=== PATIENT | female | born 1960 | race African-American/Black ===

== ENCOUNTER 2016-09-07 12:52 | Emergency (ER) | payer BC ==
[2016-09-07 12:58] VITALS: BP 138/75; PULSE 71; TEMP 98; BMI 31.0
[2016-09-07] MEDS ORDERED: KETOROLAC TROMETHAMINE 60 MG/2 ML VIAL IM ONE (14:21)
--- NOTE | 2016-09-07 14:21 | PDOC ---
History of Present Illness - General Chief Complaint: Injury Stated Complaint: FALL/ BACK PAIN, RT LEG Time Seen by Provider: 09/07/16 13:26 History Source: Patient Exam Limitations: No Limitations - History of Present Illness Initial Comments: 09/07/16 14:29 \ Chief complaint: Right lower back pain radiating down her right leg to calf, right knee buckling since falling this morning in her bathroom History of present illness: Patient is a 56-year-old female with a history of hypertension, cervical neck pain chronic and right shoulder pain here today after patient slid in her bathroom causing her to do a split with her right leg forward in her left leg backwards causing her back to arch posteriorly. Patient reports that she has had severe right lower back pain radiating down her right leg to her right posterior calf since this occurred this morning. Patient also reports that her right knee is tender laterally and juan that time. Patient reports that in the past she has had right-sided lower back pain with sciatica down her right leg. Patient reports taking ibuprofen in early a.m. Patient does not want anything stronger that his narcotic presently. Patient is also on gabapentin she reports that she takes 3 times a day unsure of dose because of her chronic neck pain and shoulder pain. Patient denies any numbness of her right leg or any saddle anesthesia or any incontinency. Patient reports the pain is sharp in currently is a 10 out of 10 radiating from right lower back down her leg to mid calf. SHe reports that she is ambulating but is putting a lot of pressure on her left side. Occurred: reports: just prior to arrival Severity: reports: severe (rt. lower back pain radiates down rt. leg to calf, ) Pain Location: reports: back (right sided radiates down rt. leg to calf, ), lower extremity (rt. knee pain and buckling of knee) Method of Injury: Yes: fall (causing her to do a split with right leg forward, left backward, causing her lower back to arch backward) Modifying Factors: improves with: None Loss of Consciousness: no loss of consciousness Associated Symptoms (Fall): muscle spasms (rt.. thigh, lower back ) Past History - Past Medical History Allergies/Adverse Reactions: Allergies Allergy/AdvReac Type Severity Reaction Status Date / Time No Known Allergies Allergy Verified 09/07/16 12:58 Home Medications: Ambulatory Orders Amlodipine Besylate [Norvasc -] 5 mg PO DAILY 04/14/13 Freeland-3 Fatty Acids/Dha/Epa [Megared Plant-Freeland 300 mg Cap] 300 mg PO DAILY Ibuprofen 600 mg PO Q6H PRN #18 tablet 09/07/16 HTN: Yes Suicide Attempt (Hx): No - Psycho/Social/Smoking Cessation Hx Suicidal Ideation: No Smoking Status: No Smoking History: Former smoker Have you smoked in the past 12 months: No Number of Cigarettes Smoked Daily: 0 If you are a former smoker, when did you quit?: 32 years ago Information on smoking cessation initiated: No Hx Alcohol Use: No Drug/Substance Use Hx: No Review of Systems - Review of Systems Able to Perform ROS?: Yes Constitutional: No: Symptoms Reported HEENTM: No: Symptoms Reported Respiratory: No: Symptoms reported Cardiac (ROS): No: Symptoms Reported ABD/GI: No: Symptoms Reported : No: Symptoms Reported Musculoskeletal: Yes: Back Pain (right sided radiates down rt. leg to mid calf ) , Joint Pain (rt. knee with buckling ), Muscle Pain (rt. thigh ) Integumentary: No: Symptoms Reported Neurological: No: Symptoms reported *Physical Exam - Vital Signs Last Vital Signs Temp Pulse Resp BP Pulse Ox 98 F 71 18 138/75 97 09/07/16 12:55 09/07/16 12:55 09/07/16 12:55 09/07/16 12:55 09/07/16 12:55 - Physical Exam General Appearance: Yes: Appropriately Dressed Respiratory/Chest: positive: Lungs Clear, Normal Breath Sounds. negative: Chest Tender, Respiratory Distress Cardiovascular: positive: Regular Rhythm, Regular Rate, S1, S2 Musculoskeletal: positive: Normal Inspection, Decreased Range of Motion (at waist ), Muscle Spasm (rt. thigh lateral), Other (rt. paraspinal muscle tenderness). negative: Vertebral Tenderness Extremity: positive: Normal Capillary Refill, Normal Inspection, Normal Range of Motion (tenderness rt. lateral/posterior knee ), Other (negative anterior/ posterior drawer, no crepitus) Integumentary: positive: Normal Color Neurologic: positive: Alert, Normal Response, Respond to painful stimul, Responsive, Other (negative SLR b/l ). negative: Motor Strength 5/5 (motor/ strenght lower rt 4/4), Numbness, Sensory Deficit (right ) Deep Tendon Reflexes: Knee (R): 4+ Procedures - Consent Consent obtained: From Patient - Splinting Splint Location: Right: Knee Pre-Proc Neuro Vasc Exam: normal Pre-Made Type: knee immobilizer Progress: 09/07/16 15:36 lisae Medical Decision Making - Medical Decision Making 09/07/16 14:32 Patient is a 56-year-old female with a history of hypertension, cervical neck pain chronic and right shoulder pain here today after patient slid in her bathroom causing her to do a split with her right leg forward in her left leg backwards causing her back to arch posteriorly. Patient reports that she has had severe right lower back pain radiating down her right leg to her right posterior calf since this occurred this morning. Patient also reports that her right knee is tender laterally and juan that time. Patient reports that in the past she has had right-sided lower back pain with sciatica down her right leg. Patient reports taking ibuprofen in early a.m. Patient does not want anything stronger that his narcotic presently. Patient is also on gabapentin she reports that she takes 3 times a day unsure of dose because of her chronic neck pain and shoulder pain. Patient denies any numbness of her right leg or any saddle anesthesia or any incontinency. Patient reports the pain is sharp in currently is a 10 out of 10 radiating from right lower back down her leg to mid calf. SHe reports that she is ambulating but is putting a lot of pressure on her left side. 09/07/16 14:32 Fall, right lower back pain with radiculopathy down right leg to bid calf Right knee pain laterally with unstable knee buckling with ambulation Plan: Toradol 60 mg IM now patient does not want anything stronger Be able to give patient muscle relaxant due to interaction with gabapentin causing increased [facility]IST depression X-ray lumbar sacral spine chronic discogenic disc disease L5-S1, and facet joint arthropathy per Dr. Turner X-ray right knee no gross abnormality noted Right knee immobilizer Follow-up with orthopedist as soon as possible Ibuprofen 600 mg every 6 hours when necessary pain prn 09/07/16 15:36 09/08/16 00:05 *DC/Admit/Observation/Transfer Diagnosis at time of Disposition: Lumbar pain with radiation down right leg, Unstable right knee Knee pain, right Qualifiers: Chronicity: acute Qualified Code(s): M25.561 - Pain in right knee - Discharge Dispostion Disposition: HOME Condition at time of disposition: Stable - Prescriptions Prescriptions: Ibuprofen 600 mg PO Q6H PRN #18 tablet PRN Reason: Pain - Referrals Referrals: Samantha Johnson MD [Primary Care Provider] - - Patient Instructions Additional Instructions: Follow-up with your orthopedist as soon as possible for further evaluation Keep knee immobilizer on her right knee during the day elevate right leg as much as possible and use Cane for ambulation Return to emergency room if symptoms worsen any numbness of right leg or groin or worsening pain Patient voiced understanding of discharge instructions and all questions were answered
[2016-09-07] MEDS ORDERED: KETOROLAC TROMETHAMINE 60 MG/2 ML VIAL ONE (14:31)
== END 2016-09-07 15:44 | disposition home or self-care (01) ==
LOC: JERFT 12:52
PROC: 2W3LXYZ Immobilization of Right Lower Extremity using Other Device (ICD-10-PCS; principal; 2016-09-07)
DX: M54.16 Radiculopathy, lumbar region (principal); M25.361 Other instability, right knee; W01.0XXA Fall on same level from slipping, tripping and stumbling without subsequent striking against object, initial encounter; Y93.89 Activity, other specified; Y92.012 Bathroom of single-family (private) house as the place of occurrence of the external cause
CPT/HCPCS: 72100-TC; 73562-TC-RT; 99281-25

== ENCOUNTER 2018-01-07 05:12 | Inpatient (IN) | payer BC ==
[2018-01-06 13:52] VITALS: BMI 33.3
[2018-01-07] MEDS ORDERED: VASOPRESSIN 20 UNITS/ML VIAL IV ONE (07:58)
[2018-01-07] MEDS ORDERED: ceFAZolin 2 GRAM PREMIX BAG IVPB ONE (08:00)
[2018-01-07] MEDS ORDERED: metroNIDAZOLE 0.75% VAGINAL GEL 70 GM TUBE ONE (08:19)
[2018-01-07] MEDS ORDERED: ROCURONIUM BROMIDE 50 MG/5 ML VIAL ONE (08:50)
[2018-01-07] MEDS ORDERED: LIDOCAINE HCL/PF 2% SDV 5ML VIAL ONE (08:50)
[2018-01-07] MEDS ORDERED: fentaNYL CITRATE 250 MCG/5 ML VIAL ONE (08:50)
[2018-01-07] MEDS ORDERED: PROPOFOL 20 ML ONE (08:50)
[2018-01-07] MEDS ORDERED: MIDAZOLAM HCL 2 MG/2 ML SINGLE DOSE VIAL ONE (08:50)
[2018-01-07] MEDS ORDERED: ceFAZolin SODIUM 1 GM VIAL ONE (08:50)
[2018-01-07] MEDS ORDERED: ceFAZolin SODIUM 1 GM VIAL IVPB ONE (09:12)
[2018-01-07] MEDS ORDERED: DEXAMETHASONE SOD PHOSPHATE 4 MG/1 ML VIAL ONE (09:24)
[2018-01-07] MEDS ORDERED: GLYCOPYRROLATE 0.2 MG/1 ML VIAL ONE (10:06)
[2018-01-07] MEDS ORDERED: NEOSTIGMINE METHYLSULFATE 0.5 MG/ML - 10 ML MDV ONE (10:07)
[2018-01-07] MEDS ORDERED: metroNIDAZOLE 0.75% TOPICAL GEL 45 GM TUBE TP ONE (10:33)
[2018-01-07] MEDS ORDERED: IBUPROFEN 800 MG/8 ML IJ IVPB PRN ×2 (10:56→11:01)
[2018-01-07] MEDS ORDERED: ONDANSETRON 4 MG/2 ML VIAL IVPUSH PRN ×2 (10:56→11:01)
[2018-01-07] MEDS ORDERED: METOCLOPRAMIDE HCL INJECTION 10 MG/2 ML VIAL IVPUSH PRN (10:57)
[2018-01-07] MEDS ORDERED: IBUPROFEN 600 MG TABLET (FP) PO PRN (11:01)
[2018-01-07] MEDS ORDERED: oxyCODONE HCL 5 MG TABLET PO PRN (11:01)
[2018-01-07] MEDS ORDERED: ELECTROLYTE-148 SOLN 1,000 ML IV SCH (11:15)
[2018-01-07] MEDS ORDERED: ONDANSETRON 4 MG/2 ML VIAL IVPUSH ONE (11:15)
[2018-01-07] MEDS ORDERED: IBUPROFEN 800 MG/8 ML IJ IVPB ONE (11:26)
[2018-01-07] MEDS ORDERED: PROMETHAZINE HCL 25 MG/1 ML VIAL ONE (11:26)
[2018-01-07] MEDS ORDERED: PROMETHAZINE HCL 25 MG/1 ML VIAL IVPUSH ONE (11:40)
--- NOTE | 2018-01-07 13:27 | OP ---
DATE OF OPERATION: 01/07/2018 PREOPERATIVE DIAGNOSES: Uterovaginal prolapse, cystocele, rectocele, and pelvic pain. POSTOPERATIVE DIAGNOSES: Uterovaginal prolapse, cystocele, rectocele, and pelvic pain. PROCEDURE: Vaginal hysterectomy, cystocele, rectocele, and perineoplasty. SURGEON: Chaparro Box MD ANESTHESIA: General. ANESTHESIOLOGIST: Jacqueline Chen MD TYPE CUTTER: Mata Phillip MD ESTIMATED BLOOD LOSS: 200 mL DESCRIPTION OF OPERATION: Patient was taken to the operating room, had adequate general anesthesia. In dorsal lithotomy position, examination under anesthesia revealed external genitalia to be atrophic with whitish discoloration and severe atrophy of the vulvo-perineal area with some fissure and a posterior perineal body. Vagina was atrophic. Cervix was out of the vagina. Uterus normal size, retroverted. Adnexa: No masses were palpable. Then, with a weighted speculum in the vagina, anterior lip of the cervix was grasped with 2 single-tooth tenacula, and then, the paracervical area and anterior and posterior vaginal mucosa was infiltrated with vasopressin solution. Then, a circumferential incision was made around the cervix with cautery. Then, the posterior vaginal mucosa was dissected from the cervix, and cul-de-sac was grasped with an Allis clamp and entered with a Metzenbaum scissor. Then, weighted speculum was advanced into the cul-de-sac. Then, anterior the mucosa was dissected from the cervix with a Metzenbaum scissor and blunt dissection, and bladder was pushed up. Then, uterosacral ligament was identified bilaterally, clamped with Lloyd clamp, cut, and the clamp replaced with 0 Vicryl suture bilaterally. These clamps were held. Then, the anterior peritoneum was entered. Bladder was lifted. Bilateral uterine arteries were identified, clamped with Lloyd clamp, cut, and the clamp replaced with 0 Vicryl suture bilaterally. At this time, paracervical area was grasped with a bipolar LigaSure cautery, cauterized, and cut until the upper pedicles were reached. At this time, utero-ovarian ligament was grasped with a bipolar cautery, cauterized, and cut, and then, tube also was cauterized bilaterally with a bipolar cautery, cauterized, and cut. The uterus was severed from the adnexa and removed. No active bleeding was seen. Pelvic cavity irrigated. Both ovaries appeared to be normal, small, and both tubes also were high up in the pelvic area and not accessible. At this time, all the lap pads, sponge count, and instrument count were correct and the peritoneum was closed with a 0 Vicryl continuous pursestring suture and peritoneum was closed. The uterosacral ligament was fixed to the vaginal angle, and then, the vaginal mucosa was closed with interrupted suture of 0 Vicryl. At this time, the cystocele repair was started by putting 2 Allis clamps at each side of the vaginal mucosa, and then, anterior vaginal mucosa was infiltrated with vasopressin solution and then dissected in the midline. Then, the bladder was from vaginal mucosa with sharp Metzenbaum scissors and then blunt dissection. Then, cystocele was repaired with pursestring suture of 3-0 Vicryl and then interrupted suture of 3-0 Vicryl for reinforcement of the bladder. Cystocele was reduced. Excess vaginal mucosa was cut. Then, vaginal mucosa was brought together with interrupted suture of 3-0 Vicryl. Then, rectocele repair started with infiltration of the posterior vaginal mucosa, and then, vaginal mucosa was cut at midline and then undermined with Metzenbaum scissors. Then, the rectum was from vaginal mucosa. Rectocele was repaired with interrupted suture of 2-0 Vicryl. There was severe atrophy of the vagina. Therefore, there was no excised mucosa. Then, vaginal mucosa was brought together with interrupted suture of 2-0 Vicryl, and then, perineum was repaired in an episiotomy-like fashion with 2-0 Vicryl and 3-0 Vicryl. No active bleeding was seen. Vagina was packed with 1/2-inch Iodoform gauze. The patient tolerated the procedure well, left the OR in good condition. Mclean catheter adequate urine and it was clear urine. Trini [id number]
[2018-01-07] MEDS: amLODIPine BESYLATE 5 MG TABLET (FP) PO SCH (14:30)
[2018-01-07] MEDS: LACTATED RINGERS SOLUTION 1,000 ML IV SCH (17:32)
[2018-01-07] MEDS: CEFAZOLIN 2 GM/D5W 2 GM/50 ML ML IVPB SCH (19:39)
[2018-01-08] MEDS: CEFAZOLIN 2 GM/D5W 2 GM/50 ML ML IVPB SCH (02:00)
[2018-01-08] MEDS: LACTATED RINGERS SOLUTION 1,000 ML IV SCH ×2 (02:00→11:12)
[2018-01-08 07:06] LABS: HEMATOCRIT 33.7 % (32.4-45.2); HEMOGLOBIN 11.2 GM/dL (10.7-15.3); MCH 28.6 pg (25.7-33.7); MCHC 33.1 g/dl (32.0-36.0); MEAN CELL VOLUME 86.5 fl (80-96); MEAN PLT VOLUME 9.3 fl (7.5-11.1); PLATELET COUNT 214 K/MM3 (134-434); RDW 13.9 % (11.6-15.6); WHITE BLOOD COUNT 8.5 K/mm3 (4.0-10.0)
[2018-01-08 07:47] LABS: ANION GAP 7 (8-16); BLOOD UREA NITROGEN 9 mg/dL (7-18); CALCIUM 8.8 mg/dL (8.5-10.1); CHLORIDE 106 mmol/L (98-107); CO2 27 mmol/L (21-32); CREATININE 0.9 mg/dL (0.55-1.02); GLUCOSE,RANDOM 92 mg/dL (74-106); SODIUM 140 mmol/L (136-145)
[2018-01-08] MEDS ORDERED: SENNOSIDES 8.6MG TABLET (FP) PO PRN (08:01)
[2018-01-08] MEDS: ENOXAPARIN NA (PORCINE) 40 MG/0.4 ML DISP.SYRIN SQ SCH (09:42)
[2018-01-08] MEDS: amLODIPine BESYLATE 5 MG TABLET (FP) PO SCH (09:42)
[2018-01-08] MEDS: ACETAMINOPHEN 325 MG TABLET (FP) PO PRN ×2 (09:43→17:22)
--- NOTE | 2018-01-08 10:58 | PN ---
Progress Note (short form) - Note Progress Note: pod 1, doing well, voided with no difficulty CBC, BMP 01/08/18 07:00 01/08/18 07:00 Last Vital Signs Temp Pulse Resp BP Pulse Ox 97.5 F L 68 18 136/71 100 01/08/18 09:54 01/08/18 09:54 01/08/18 09:54 01/08/18 09:54 01/07/18 13:45 abdomen soft, no distension, no cva vagina no bleeding, no discharge packing removed ,dry no calf tenderness plan ambulate, advance diet pain management
--- NOTE | 2018-01-08 11:11 | PN ---
Progress Note, Physician Chief Complaint: day #1 s/p vaginal hysterectomy - Current Medication List Current Medications: Active Medications Acetaminophen (Tylenol -) 650 mg PO Q4H PRN PRN Reason: PAIN LEVEL 1-5 Last Admin: 01/08/18 09:43 Dose: 650 mg Amlodipine Besylate (Norvasc -) 5 mg PO DAILY [facility] Last Admin: 01/08/18 09:42 Dose: 5 mg Enoxaparin Sodium (Lovenox -) 40 mg SQ DAILY [facility] Last Admin: 01/08/18 09:42 Dose: 40 mg Fentanyl (Sublimaze Injection -) 50 mcg IVPUSH [id number] PRN PRN Reason: PAIN-PACU ORDER X 4 DOSES ONLY Lactated Ringer's (Lactated Ringers Solution) 1,000 mls @ 125 mls/hr IV ASDIR [facility] Last Admin: 01/08/18 02:00 Dose: 125 mls/hr Parenteral Electrolytes (Plasma-Lyte 148 -) 1,000 mls @ 125 mls/hr IV ASDIR [facility] Ibuprofen (Motrin -) 600 mg PO Q6H PRN PRN Reason: FEVER Ibuprofen (Caldolor Injection -) 800 mg IVPB Q6H PRN PRN Reason: Fever - If PO not effective. Metoclopramide HCl (Reglan Injection -) 10 mg IVPUSH Q6H PRN PRN Reason: NAUSEA AND/OR VOMITING Ondansetron HCl (Zofran Injection) 4 mg IVPUSH Q6H PRN PRN Reason: NAUSEA AND/OR VOMITING Last Admin: 01/07/18 18:20 Dose: 4 mg Ondansetron HCl (Zofran Injection) 4 mg IVPUSH Q6H PRN PRN Reason: NAUSEA Oxycodone HCl (Roxicodone -) 5 mg PO Q4H PRN PRN Reason: PAIN LEVEL 1-5 Senna (Senna -) 1 tab PO BID PRN PRN Reason: CONSTIPATION - Objective Vital Signs: Vital Signs Temperature 97.5 F L 01/08/18 09:54 Pulse Rate 68 01/08/18 09:54 Respiratory Rate 18 01/08/18 09:54 Blood Pressure 136/71 01/08/18 09:54 O2 Sat by Pulse Oximetry (%) 100 01/07/18 13:45 Labs: CBC, BMP 01/08/18 07:00 01/08/18 07:00 Assessment/Plan Doing well after GA for vag hys. Likely d/c later today
[2018-01-09 08:06] VITALS: BP 132/71; PULSE 72; TEMP 98.5
[2018-01-09] MEDS: amLODIPine BESYLATE 5 MG TABLET (FP) PO SCH (09:01)
[2018-01-09] MEDS: ENOXAPARIN NA (PORCINE) 40 MG/0.4 ML DISP.SYRIN SQ SCH (09:01)
--- NOTE | 2018-01-09 19:27 | PATH ---
Surgical Pathology Report Patient Name: ELVIN LEYVA [facility]. Rec. #: [id number] /Age/Gender: 1960 (Age: 57) / F Account: [id number] Location: [facility] OBS/REEL FED PRINTER Taken: 01/07/2018 Received: 01/07/2018 Reported: 01/09/2018 Physicians: Chaparro Box M.D. Specimen(s) Received A: UTERUS AND CERVIX B: VAGINAL MUCOSA Clinical History Complete uterovaginal prolapse Final Diagnosis A. UTERUS AND CERVIX, HYSTERECTOMY: ATROPHIC ENDOMETRIUM. CERVIX WITH CHRONIC INFLAMMATION AND SQUAMOUS METAPLASIA. B. VAGINA MUCOSA, EXCISION: SQUAMOUS MUCOSA WITH LICHEN SCLEROSUS AT ATROPHICUS. Electronically Signed Dania Medrano M.D. Gross Description A. Received in formalin labeled "uterus, cervix," is a 39 g uterus with an attached cervix and no attached adnexa. The specimen measures 7 cm from superior to inferior, 4.2 cm from left to right and 2.7 cm from anterior to posterior. The serosa is carbajal-quiroga and smooth. The attached cervix measures 3.2 cm in length and averages 2 cm in diameter. The ectocervix is carbajal, smooth and glistening. The endocervix is unremarkable. The endometrial cavity measures 3 cm in length and 1.5 cm from cornu to cornu. The endometrium is carbajal and averages 0.1 cm in thickness. The myometrium is carbajal-hopper and averages 1.3 cm in thickness. No intramural nodules are identified. Disc Pad Grinder sections are submitted in 6 cassettes as follows: 1-anterior cervix; 2-posterior cervix; 4-7-[id number] endomyometrium; 6-9-[id number] endomyometrium. B. Received in formalin labeled "vaginal mucosa," are 2 carbajal portions of mucosal tissue measuring 1.8 x 1.6 x 0.3 cm and 2.7 x 0.9 x 0.2 cm. No discrete lesions are identified. Disc Pad Grinder sections are submitted in one cassette. 01/08/201801/08/2018
== END 2018-01-09 11:10 | disposition home or self-care (01) | DRG 743 ==
LOC: JSAMEDAYSX 05:12 → EDSTATUS 09:00 → J3W 13:34
PROVIDERS: ADMIT Obstetrics & Gynecology; ATTEND Obstetrics & Gynecology
PROC: 0UT97ZZ Resection of Uterus, Via Natural or Artificial Opening (ICD-10-PCS; principal; 2018-01-07 09:00)
PROC: 0JQC0ZZ Repair Pelvic Region Subcutaneous Tissue and Fascia, Open Approach (ICD-10-PCS; 2018-01-07 09:00)
DX: N81.3 Complete uterovaginal prolapse (principal); R10.2 Pelvic and perineal pain
CPT/HCPCS: 36415; 80048; 85027; 86850; 86900; 86901; 88302-TC; 88307-TC; 94760

== ENCOUNTER 2018-06-16 13:17 | Emergency (ER) | payer BC ==
[2018-06-16 13:38] VITALS: BP 148/84; PULSE 68; TEMP 97.6; BMI 33.6
[2018-06-16] MEDS ORDERED: DIPHTH,PERTUSS(ACELL),TET 0.5 ML DISP.SYRIN IM ONE ×2 (14:06→14:10)
--- NOTE | 2018-06-16 14:09 | PDOC ---
History of Present Illness - General Chief Complaint: Laceration Stated Complaint: LACERATION Time Seen by Provider: 06/16/18 14:03 - History of Present Illness Initial Comments: 06/16/18 14:06 58-year-old female with a past medical history significant for diabetes presents for evaluation of a laceration on her left middle finger. She states she lacerated her finger while cleaning the toaster oven. She is not current on tetanus. The bleeding was controlled with direct pressure. Past History - Past Medical History Allergies/Adverse Reactions: Allergies Allergy/AdvReac Type Severity Reaction Status Date / Time No Known Allergies Allergy Verified 01/06/18 13:57 Home Medications: Ambulatory Orders Amlodipine Besylate [Norvasc -] 5 mg PO DAILY 04/14/13 Aspirin Coated [Ecotrin -] 81 mg PO DAILY 01/06/18 Cholecalciferol (Vitamin D3) [Vitamin D3] 5,000 unit PO DAILY 01/06/18 Ibuprofen [Motrin -] 600 mg PO QID #28 tablet 01/08/18 Anemia: Yes Asthma: No Cancer: No Cardiac Disorders: No CVA: No COPD: No CHF: No Dementia: No Diabetes: No GI Disorders: No Disorders: No HTN: Yes Hypercholesterolemia: Yes Liver Disease: No Seizures: No Thyroid Disease: No - Immunization History Immunization Up to Date: No - Suicide/Smoking/Psychosocial Hx Smoking Status: No Smoking History: Never smoked Have you smoked in the past 12 months: No Number of Cigarettes Smoked Daily: 0 If you are a former smoker, when did you quit?: 32 years ago Information on smoking cessation initiated: No Hx Alcohol Use: No Drug/Substance Use Hx: No Substance Use Type: Alcohol Hx Substance Use Treatment: No Review of Systems - Review of Systems Integumentary: Yes: See HPI *Physical Exam - Vital Signs Last Vital Signs Temp Pulse Resp BP Pulse Ox 97.6 F 68 16 148/84 100 06/16/18 13:34 06/16/18 13:34 06/16/18 13:34 06/16/18 13:34 06/16/18 13:34 - Physical Exam Comments: 06/16/18 14:07 Left finger skin color and temperature are normal. There is a subcentimeter superficial laceration without exposing subcutaneous fat. FDS and FDP work independently there are no gross sensorimotor deficits she is neurovascularly intact. Moderate Sedation - Procedure Monitoring Vital Signs: Procedure Monitoring Vital Signs Temperature 97.6 F 06/16/18 13:34 Pulse Rate 68 06/16/18 13:34 Respiratory Rate 16 06/16/18 13:34 Blood Pressure 148/84 06/16/18 13:34 O2 Sat by Pulse Oximetry (%) 100 06/16/18 13:34 Medical Decision Making - Medical Decision Making 06/16/18 14:08 This laceration does not require sutures. The edges were approximated with a single Steri-Strip. Heart to that the wound was copiously washed with chlorhexidine scrub. A dry sterile dressing was placed. *DC/Admit/Observation/Transfer Diagnosis at time of Disposition: Laceration of finger - Discharge Dispostion Disposition: HOME Condition at time of disposition: Stable Decision to Admit order: No - Referrals Referrals: Samantha Johnson MD [Primary Care Provider] - Leandro Holloway MD [Staff Physician] - - Patient Instructions Additional Instructions: The laceration did not require sutures today. Please leave the dressing on for the next 48 hours. After 48 hours and may remove remove the dressing and wash her hand but soap and water and leave the area open to air. The Steri-Strips will fall off by itself. Do not pull off the Steri-Strip. He may follow-up with hand surgery in 2-3 days for further evaluation and treatment options and always return to the emergency room should you have any other issues. Return to the emergency room should there be any redness swelling drainage or increasing pain around the area of the cut. Your tetanus shot was updated today. - Post Discharge Activity
== END 2018-06-16 14:21 | disposition home or self-care (01) ==
LOC: JERFT 13:17
PROC: 3E0234Z Introduction of Serum, Toxoid and Vaccine into Muscle, Percutaneous Approach (ICD-10-PCS; principal; 2018-06-16)
DX: S61.213A Laceration without foreign body of left middle finger without damage to nail, initial encounter (principal); X15.1XXA Contact with hot toaster, initial encounter; Y93.E9 Activity, other interior property and clothing maintenance; Y92.018 Other place in single-family (private) house as the place of occurrence of the external cause; Y99.8 Other external cause status
CPT/HCPCS: 90715; 99281-25